=== PATIENT | male | born 1945 | race Caucasian/White ===

== ENCOUNTER 2018-04-24 05:33 | Inpatient (IN) | payer MEDICARE, OTHER ==
[2018-04-24] MEDS: THROMBIN 5000 UNIT VIAL (06:51)
[2018-04-24] MEDS: SURGIFOAM POWDER 1 GM KIT (06:51)
[2018-04-24] MEDS: CA CHLORIDE 10% 10 ML SYRINGE (06:52)
[2018-04-24] MEDS: HEPARIN 1000 UNITS/ML 10 ML INJ (06:53)
[2018-04-24] MEDS: CEFAZOLIN 1 GM INJ (06:55)
[2018-04-24] MEDS: BUPIVACAINE 0.5%/EPI (SDV) 30 ML INJ (06:55)
[2018-04-24] MEDS ORDERED: HYDROmorphONE 1 MG/5 ML IV SYRINGE IV ×3 (07:00)
[2018-04-24] MEDS ORDERED: DIPHENHYDRAMINE 50 MG INJ IV ×2 (07:00)
[2018-04-24] MEDS ORDERED: NALOXONE (0.4 MG/ML) INJ IV (07:00)
[2018-04-24] MEDS ORDERED: IPRATROPIUM (NEB) 0.5 MG/2.5 ML AMP HHN (07:00)
[2018-04-24] MEDS ORDERED: LABETALOL HCL 20MG INJ IV (07:00)
[2018-04-24] MEDS ORDERED: ROCURONIUM 50 MG INJ ×2 (07:00→07:13)
[2018-04-24] MEDS ORDERED: FENTAnyl 50 MCG/ML VIAL IV (07:00)
[2018-04-24] MEDS ORDERED: ONDANSETRON 4 MG INJ IV (07:00)
[2018-04-24] MEDS ORDERED: MEPERIDINE 25 MG INJ IV (07:00)
[2018-04-24] MEDS ORDERED: CEPASTAT LOZENGE MT (07:00)
[2018-04-24] MEDS: LACTATED RINGER'S 1,000 ML IV* (07:00)
[2018-04-24] MEDS ORDERED: DIPHENHYDRAMINE 25 MG CAP PO (07:00)
[2018-04-24] MEDS ORDERED: HYDROmorphONE 0.5 MG/0.5 ML SYG IV (07:00)
[2018-04-24] MEDS ORDERED: LEVALBUTEROL (NEB) 1.25 MG/0.5 ML AMP HHN (07:00)
[2018-04-24] MEDS ORDERED: BISACODYL 10 MG SUPP PR (07:00)
[2018-04-24] MEDS ORDERED: CEFAZOLIN 1 GM INJ (07:00)
[2018-04-24] MEDS ORDERED: ONDANSETRON 4 MG INJ (07:00)
[2018-04-24] MEDS ORDERED: METOCLOPRAMIDE 10 MG INJ (07:00)
[2018-04-24] MEDS ORDERED: DESFLURANE 15 MIN (07:00)
[2018-04-24] MEDS ORDERED: hydrALAzine 20 MG INJ IV (07:00)
[2018-04-24] MEDS ORDERED: FENTAnyl 50 MCG/ML VIAL ×2 (07:06→14:20)
[2018-04-24] MEDS ORDERED: ETOMIDATE 20 MG INJ (07:07)
[2018-04-24] MEDS ORDERED: MIDAZOLAM 1 MG/ML 2 ML INJ (07:07)
[2018-04-24] MEDS ORDERED: DEXAMETHASONE 4 MG/ML 5 ML INJ (07:13)
[2018-04-24] MEDS ORDERED: SUCCINYLCHOLINE CHLORIDE 100 MG/5 ML SYG IV (07:13)
[2018-04-24] MEDS ORDERED: LIDOCAINE 2% (SDV) 5 ML INJ (07:13)
[2018-04-24] MEDS ORDERED: HEPARIN 1000 UNITS/ML 10 ML INJ (08:17)
[2018-04-24] MEDS ORDERED: SURGIFOAM POWDER 1 GM KIT ×2 (08:55→12:37)
[2018-04-24] MEDS ORDERED: THROMBIN 5000 UNIT VIAL ×2 (08:56→10:10)
[2018-04-24] MEDS: FENTAnyl 50 MCG/ML VIAL (12:52)
[2018-04-24] MEDS: BUPIVACAINE 0.25% (MPF) 30 ML INJ (12:52)
[2018-04-24] MEDS: HYDROmorphONE 0.2 MG/ML PCA IV (14:28)
[2018-04-24] MEDS: CEFAZOLIN 1 GM/50 ML (PMX) 50 ML IVPB ×2 (14:29→18:11)
[2018-04-24] MEDS: DOCUSATE SODIUM 100 MG CAP PO ×2 (14:30→21:03)
[2018-04-24] MEDS: FENTAnyl 50 MCG/ML VIAL IV (14:42)
[2018-04-24] MEDS: ONDANSETRON 4 MG INJ IV (14:42)
[2018-04-24] MEDS: D5W-0.45 NACL + KCL 20 MEQ 1,000 ML IV ×2 (17:00→18:26)
[2018-04-25] MEDS: CEFAZOLIN 1 GM/50 ML (PMX) 50 ML IVPB (02:02)
[2018-04-25] MEDS: D5W-0.45 NACL + KCL 20 MEQ 1,000 ML IV (05:00)
[2018-04-25 05:09] LABS: ADD MAN DIFF? NO
[2018-04-25 05:19] LABS: WHITE BLOOD COUNT 9.4 10^3/ul (4.8-10.8)
[2018-04-25 05:19] LABS: BASOPHILS % 0.1 % (0.0-2.0); EOSINOPHILS % 0.1 % (0.0-7.0); HEMATOCRIT 32.1 % (42.0-52.0); LYMPHOCYTES # 1.1 10^3/ul (0.8-2.9); LYMPHOCYTES % 11.2 % (15.0-51.0); MEAN CORPUSCULAR HEMOGLOBIN 25.3 pg (29.0-33.0); MEAN CORPUSCULAR HGB CONC 31.2 g/dl (32.0-37.0); MEAN CORPUSCULAR VOLUME 81.3 fl (82.0-101.0); MEAN PLATELET VOLUME 11.4 fl (7.4-10.4); MONOCYTES % 10.7 % (0.0-11.0); NEUTROPHIL # 7.3 10^3/ul (1.6-7.5); NEUTROPHILS % 77.7 % (39.0-77.0); PLATELET COUNT 102 10^3/UL (140-415); POSITIVE DIFF @See below; RED BLOOD COUNT 3.95 10^6/ul (4.70-6.10); RED CELL DISTRIBUTION WIDTH 15.1 % (11.5-14.5)
[2018-04-25] MEDS: PANTOPRAZOLE 40 MG INJ IV ×2 (05:31→06:56)
[2018-04-25] MEDS: LACTATED RINGER'S 1,000 ML IV* (05:31)
[2018-04-25 05:34] LABS: ANION GAP 6 (5-13); BLOOD UREA NITROGEN 14 mg/dl (7-20); CALCIUM 8.2 mg/dl (8.4-10.2); CARBON DIOXIDE 26 mmol/L (21-31); CHLORIDE 105 mmol/L (97-110); CREATININE 0.74 mg/dl (0.61-1.24); GLUCOSE 128 mg/dl (70-220); MAGNESIUM 1.9 mg/dl (1.7-2.5); SODIUM 137 mmol/L (135-144)
[2018-04-25 06:58] LABS: ADD UMIC YES; UR ASCORBIC ACID NEGATIVE (NEGATIVE); UR BACTERIA FEW /HPF (NONE SEEN); UR BILIRUBIN (Dip) NEGATIVE (NEGATIVE); UR BLOOD (Dip) 2+ mg/dL (NEGATIVE); UR CLARITY SLIGHTLY CLOUDY (CLEAR); UR COLOR YELLOW (YELLOW); UR GLUCOSE (Dip) NEGATIVE (NEGATIVE); UR KETONES (Dip) NEGATIVE (NEGATIVE); UR LEUKOCYTE ESTERASE (Dip) NEGATIVE Leu/ul (NEGATIVE); UR MUCUS FEW /HPF (NONE SEEN); UR NITRITE (Dip) NEGATIVE (NEGATIVE); UR RBC 181 /HPF (0-5); UR SPECIFIC GRAVITY (Dip) 1.025 (1.003-1.030); UR TOTAL PROTEIN (Dip) 1+ mg/dl (NEGATIVE); UR UROBILINOGEN (Dip) NEGATIVE (NEGATIVE); UR WBC 6 /HPF (0-5)
[2018-04-25] MEDS: DOCUSATE SODIUM 100 MG CAP PO ×2 (09:50→22:21)
[2018-04-25] MEDS ORDERED: HYDROCODONE/APAP (10/325) TAB PO (10:00)
[2018-04-25] MEDS: ACETAMINOPHEN 325 MG TAB PO ×2 (17:37→22:21)
[2018-04-25] MEDS: AL HYDROX/MG HYDROX/SIMETH 30 ML CUP PO (17:38)
[2018-04-26] MEDS: CYCLOBENZAPRINE 10 MG TAB PO (00:59)
[2018-04-26] MEDS: LACTATED RINGER'S 1,000 ML IV* (02:57)
[2018-04-26 05:20] LABS: ADD MAN DIFF? NO
[2018-04-26 05:30] LABS: WHITE BLOOD COUNT 8.5 10^3/ul (4.8-10.8)
[2018-04-26 05:30] LABS: ABNORMAL IP MESSAGE 1; BASOPHILS % 0.2 % (0.0-2.0); EOSINOPHILS % 0.2 % (0.0-7.0); HEMATOCRIT 30.1 % (42.0-52.0); HEMOGLOBIN 9.6 g/dl (14.0-18.0); LYMPHOCYTES # 1.3 10^3/ul (0.8-2.9); LYMPHOCYTES % 14.7 % (15.0-51.0); MEAN CORPUSCULAR HEMOGLOBIN 25.9 pg (29.0-33.0); MEAN CORPUSCULAR HGB CONC 31.9 g/dl (32.0-37.0); MEAN CORPUSCULAR VOLUME 81.4 fl (82.0-101.0); MEAN PLATELET VOLUME 11.4 fl (7.4-10.4); NEUTROPHIL # 6.2 10^3/ul (1.6-7.5); NEUTROPHILS % 72.5 % (39.0-77.0); PLATELET COUNT 91 10^3/UL (140-415); POSITIVE DIFF @See below; RED CELL DISTRIBUTION WIDTH 15.2 % (11.5-14.5)
[2018-04-26 05:51] LABS: ANION GAP 5 (5-13); BLOOD UREA NITROGEN 11 mg/dl (7-20); CALCIUM 8.7 mg/dl (8.4-10.2); CARBON DIOXIDE 28 mmol/L (21-31); CHLORIDE 107 mmol/L (97-110); CREATININE 0.74 mg/dl (0.61-1.24); GLUCOSE 105 mg/dl (70-220); MAGNESIUM 2.2 mg/dl (1.7-2.5); POTASSIUM 3.9 mmol/L (3.5-5.1); SODIUM 140 mmol/L (135-144)
[2018-04-26] MEDS: DOCUSATE SODIUM 100 MG CAP PO (08:51)
[2018-04-26] MEDS: ACETAMINOPHEN 325 MG TAB PO ×2 (08:51→12:43)
[2018-04-26] MEDS ORDERED: HYDROCODONE/APAP (10/325) TAB PO (10:00)
[2018-05-14] MEDS ORDERED: CEFAZOLIN 2 GM/50 ML (PMX) 50 ML IVPB (07:00)
== END 2018-04-26 14:40 | disposition home or self-care (01) | DRG 460 ==
LOC: REC 05:33 → MS1 15:09
PROC: 01NB0ZZ Release Lumbar Nerve, Open Approach (ICD-10-PCS; principal; 2018-04-24 07:00)
PROC: 0SG107J Fusion of 2 or more Lumbar Vertebral Joints with Autologous Tissue Substitute, Posterior Approach, Anterior Column, Open Approach (ICD-10-PCS; 2018-04-24 07:00)
PROC: 01NB0ZZ Release Lumbar Nerve, Open Approach (ICD-10-PCS; 2018-04-24 07:00)
PROC: 4A1104G Monitoring of Peripheral Nervous Electrical Activity, Intraoperative, Open Approach (ICD-10-PCS; 2018-04-24 07:00)
DX: M48.062 Spinal stenosis, lumbar region with neurogenic claudication (principal); M54.17 Radiculopathy, lumbosacral region; Z95.0 Presence of cardiac pacemaker; Z85.828 Personal history of other malignant neoplasm of skin; Z87.891 Personal history of nicotine dependence; I25.10 Atherosclerotic heart disease of native coronary artery without angina pectoris; E78.5 Hyperlipidemia, unspecified
CPT/HCPCS: 71045; 72110; 80048; 81001; 83735; 85025; 86850; 86900; 86901; 86999; 87086; 88304; 97116; 97161; 97530